=== PATIENT | male | born 1990 | race Caucasian/White ===

== ENCOUNTER 2021-08-20 11:34 | Emergency (ER) | payer SELFPAY ==
--- NOTE | 2021-08-20 12:23 | PC.NURSE ---
1148: visualized upon entry to ED, no acute distress. 1211: Pt VDC prior to triage. STates he is going to walk in clinic.
== END 2021-08-20 12:11 | disposition left against medical advice (07) ==
PROVIDERS: Emergency Provider Emergency Medicine
DX: H53.8 Other visual disturbances (principal)